=== PATIENT | female | born 2005 | race Caucasian/White ===

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

== ENCOUNTER 2023-01-03 05:29 | Emergency (ER) | payer OTHER ==
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
[2023-01-03 06:06] LABS: Urine Blood Negative (Negative); Urine Glucose Negative (Negative); Urine Protein Negative (Negative); Urine Specific Gravity 1.015 (1.005-1.030); Urine pH 6.5 (5.0-7.0)
[2023-01-03 06:24] LABS: Absolute Lymphocytes (CBC) 2.7 K/uL (0.7-4.9); Lymphocytes % 27.8 % (15.3-44.8); MPV 8.5 fL (7.6-11.3); RBC Red Blood Cell Count 4.64 M/uL (3.86-4.86)
[2023-01-03 06:26] LABS: Potassium 3.6 mmol/L (3.5-5.1)
[2023-01-03 06:56] VITALS: TEMP 97.9; O2SAT 100
[2023-01-03 06:57] VITALS: BP 122/72
[2023-01-03 14:06] LABS: Urine Specific Gravity/Preg 1.015 (1.005-1.030)
--- NOTE | 2023-01-07 13:18 | EKG ---
Test Date: 2023-01-03 Test Time: 06:35:19 Machine Buffer: JENNIFER MEASUREMENT RESULTS: Intervals: Rate: 71 UT: 128 QRSD: 80 QT: 416 QTc: 452 Bradley: P: 73 UT: 128 QRS: 89 T: 60 INTERPRETIVE STATEMENTS: Normal sinus rhythm with sinus arrhythmia Normal ECG Compared to ECG 05/14/2022 03:43:51 Sinus bradycardia no longer present Electronically Signed On 01-07-23 13:09:51 CDT by Delgado Khan
--- NOTE | 2023-01-18 15:21 | ER ---
Nurse's Notes [facility] Name: Yadi Castano Age: 17 yrs Sex: Female : 2005 Arrival Date: 01/03/2023 Time: 05:30 Bed 3 Private MD: Diagnosis: Other seizures Presentation: 01/03 05:30 Chief complaint: EMS states: called out for seizure like activity. 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 Coronavirus screen: At this time, the client does not indicate any symptoms associated with coronavirus-19. Ebola Screen: No symptoms or risks identified at this time. Initial Sepsis Screen: Does the patient meet any 2 criteria? No. Patient's initial sepsis screen is negative. Does the patient have a suspected source of infection? No. Patient's initial sepsis screen is negative. Risk Assessment: Do you want to hurt yourself or someone else? Patient reports no desire to harm self or others. Onset of symptoms was January 03, 2023 at 03:15. 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 - Social history:: Smoking status: Reported history of juuling and/or vaping. Screenin:34 [facility] ED Fall Risk Assessment (Adult) Score/Fall Risk Level 0 - 2 = Low Risk. Abuse as6 screen: Denies threats or abuse. Denies injuries from another. Nutritional screening: No deficits noted. Tuberculosis screening: No symptoms or risk factors identified. Assessment: 05:36 General: Appears in no apparent distress. Behavior is calm, cooperative. Pain: as6 Complains of pain in generalized Quality of pain is described as aching. Neuro: Level of Consciousness is awake, alert, obeys commands, Oriented to person, place, time, situation. Respiratory: Respiratory effort is even, unlabored. 06:41 Reassessment: Patient appears in no apparent distress at this time. No changes from lg3 previously documented assessment. Patient and/or family updated on plan of care and expected duration. Pain level reassessed. Patient is alert, oriented x 3, equal unlabored respirations, skin warm/dry/pink. Patient denies pain at this time. Patient states feeling better. Patient states symptoms have improved. Vital Signs: 05:30 BP 138 / 62; Pulse 78; Resp 16 S; Temp 97.9(TE); Pulse Ox 100% on R/A; Weight 58.97 kg as6 (R); Height 5 ft. 0 in. (R); Pain 6/10; 06:42 BP 122 / 72; Pulse 71; Resp 17; Pulse Ox 100% on R/A; lg3 05:30 Body Mass Index 25.39 (58.97 kg, 152.4 cm) as6 05:30 Pain Scale: Adult as6 ED Course: 05:30 Patient arrived in ED. as6 05:30 Arm band placed on. as6 05:32 Macario Jimenez MD is Attending Physician. bs3 05:34 Triage completed. as6 05:35 Placed in gown. Bed in low position. Call light in reach. Side rails up X2. as6 05:36 Daquan Murdock, RN is Primary Nurse. as6 06:10 BMP Sent. bc6 06:10 CBC with Diff Sent. bc6 06:10 Inserted saline lock: 20 gauge in right antecubital area, using aseptic technique. bc6 06:45 No provider procedures requiring assistance completed. as6 06:51 IV discontinued, intact, bleeding controlled, No redness/swelling at site. Pressure lg3 dressing applied. 06:58 Primary Nurse role handed off by Daquan Murdock RN bb Administered Medications: No medications were administered Medication: 05:35 VIS not applicable for this client. as6 Outcome: 06:45 Condition: stable as6 06:45 Discharge ordered by . bs3 06:51 Discharged to home ambulatory, with significant other. lg3 06:51 Discharge instructions given to patient, Instructed on discharge instructions, follow up and referral plans. Demonstrated understanding of instructions, follow-up care. 06:51 Patient left the ED. lg3 06:59 Patient left the ED. bb Signatures: Ada Wilkes RN RN bb Yadi Clemons RN RN lg3 Daquan Murdock, RN RN as6 Macario Jimenez MD MD bs3 Amaya Hurd bc6 Corrections: (The following items were deleted from the chart) 05:31 05:30 PMHx: UTI; as6 as6
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
== END 2023-01-03 06:59 | disposition home or self-care (01) ==
LOC: ER 05:29
DX: R56.9 Unspecified convulsions (principal)
CPT/HCPCS: 36415; 80048; 81003; 81025; 85025; 93005; 99283

== ENCOUNTER 2023-06-02 02:08 | Emergency (ER) | payer OTHER ==
--- OUTSIDE RECORDS SUMMARY | 2023-06-02 02:11 | XMS REPORT | Continuity of Care Document ---
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 qi/gfr_calculat orPed CALC BUN/CREAT (test 15 RATIO - code = 2235) SODIUM (test code = 141 MEQ/L 208-291 4429) POTASSIUM (test code 4.0 MEQ/L 3.5-5.4 = 2228) CHLORIDE (test code 106 MEQ/L 95-107 = 2215) CARBON DIOXIDE (test 20 MEQ/L 19-31 code = 2206) CALCIUM (test code = 9.1 MG/DL 8.5-10.5 2208) PROTEIN, TOTAL (test 7.1 G/DL 6.1-8.3 code = 2229) ALBUMIN (test code = 4.7 G/DL 3.5-5.2 2200) CALC GLOBULIN (test 2.4 G/DL 2.1-3.7 code = 2240) CALC A/G RATIO (test 2.0 RATIO 1.0-2.6 code = 2234) BILIRUBIN, TOTAL 0.6 MG/DL See_Comment [Automated message] (test code = 2206) The syste m which generated this result transmit jayashree reference range : <=1.2. The refe rence range was not u sed to interpret th is result as normal/abnormal . ALKALINE PHOSPHATASE 66 U/L 45-126 (test code = 2203) AST (test code = 13 U/L 9-40 2217) ALT (test code = 9 U/L 5-40 2218) TSH, THIRD [id number] 00:46:58 Test Item Value Reference Range Interpretation Comments TSH, THIRD GENERATION (test code 0.738 UIU/ML 0.400-4.100 = 2821) CBC W/AUTO DIFF WITH [id number] 05:43:17 Test Item Value Reference Range Interpretation [...] RBCS 0.00 K/UL 0.00-0.11 (test code = 42804) POCT [id number] 19:13:00 Test Item Value Reference Range Interpretation Comments POCT PREG (test code = 1605) Negative On board controls acceptable with C Yes Line (test code = 3574) POCT PREG LOT # (test code = 3575) POCT PREG TEST DATE (test code = 3576) [facility]
[2023-06-02 02:54] LABS: Specific Gravity 1.013 (1.005-1.030); Urine Bacteria <20 /HPF (<20); Urine Bilirubin NEGATIVE (Negative); Urine Blood 2+ (Negative); Urine Clarity Extremely Turbid (Clear); Urine Color Dark-Yellow (Yellow); Urine Glucose NEGATIVE (Negative); Urine Mucus Slight /HPF (None Seen); Urine Protein 1+ (Negative); Urine RBC >50 /HPF (None Seen); Urine Urobilinogen Normal (Normal); Urine WBC Clump Few /HPF (None Seen); Urine pH 6.5 (5.0-7.0)
[2023-06-02 02:57] LABS: Specific Gravity 1.013 (1.005-1.030)
--- NOTE | 2023-06-02 02:59 | ER ---
Nurse's Notes [facility] Name: Yadi Castano Age: 17 yrs Sex: Female : 2005 Arrival Date: 06/02/2023 Time: 02:08 Bed 13 Private MD: Diagnosis: UTI/ Urinary tract infection, site not specified Presentation: 06/02 02:27 Chief complaint: Patient states: burning with urination with bladder spasms pain of pf1 7,onset 1 week ago. 02:27 Coronavirus screen: Vaccine status: Patient reports being unvaccinated. Client denies pf1 travel out of the [place] in the last 14 days. At this time, the client does not indicate any symptoms associated with coronavirus-19. Ebola Screen: Patient negative for fever greater than or equal to 101.5 degrees Fahrenheit, and additional compatible Ebola Virus Disease symptoms. Initial Sepsis Screen: Does the patient meet any 2 criteria? No. Patient's initial sepsis screen is negative. Does the patient have a suspected source of infection? No. Patient's initial sepsis screen is negative. Risk Assessment: Do you want to hurt yourself or someone else? Patient reports no desire to harm self or others. 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 Last tetanus immunization: < 5 years ago Flu vaccine is not up to date. - Social history:: Smoking status: Reported history of juuling and/or vaping. Patient uses alcohol, occasionally. Patient/guardian denies using street drugs. Screenin:00 [facility] ED Fall Risk Assessment (Adult) History of falling in the last 3 months, fu including since admission No falls in past 3 months (0 pts). Abuse screen: Denies threats or abuse. Nutritional screening: No deficits noted. Tuberculosis screening: No symptoms or risk factors identified. Assessment: 02:20 General: Appears in no apparent distress. comfortable, well groomed, Behavior is calm, fu cooperative, appropriate for age. Pain: Denies pain. Neuro: Level of Consciousness is awake, alert, obeys commands, Oriented to person, place, time, situation. Respiratory: Respiratory effort is even, unlabored, Respiratory pattern is regular. : Reports burning with urination. Vital Signs: 02:27 BP 126 / 87; Pulse 69; Resp 18; Temp 98; Pulse Ox 97% ; Weight 63.5 kg; Height 5 ft. 1 pf1 in. ; Pain 710; 02:27 Body Mass Index 26.45 (63.50 kg, 154.94 cm) pf1 02:27 Pain Scale: Adult pf1 ED Course: 02:13 Patient arrived in ED. mr 02:27 Cely Fu PA-C is PHCP. sb4 02:27 Eddie Johnson MD is Attending Physician. sb4 02:42 Test, Urine Sent. fu 02:42 UAM Sent. fu 02:52 Triage completed. pf1 03:00 Patient has correct armband on for positive identification. Pulse ox on. NIBP on. fu 03:20 No provider procedures requiring assistance completed. Patient did not have IV access fu during this emergency room visit. Administered Medications: 02:45 CANCELLED (Physician Discretion): LevOfloxacin PO 500 mg PO once sb4 03:06 Drug: LevOfloxacin PO 500 mg Route: PO; fu 03:29 Follow up: Response: Medication administered at discharge. fu Medication: 03:00 VIS not applicable for this client. fu Outcome: 02:59 Discharge ordered by . sb4 03:20 Discharged to home ambulatory. fu 03:20 Condition: stable 03:20 Discharge instructions given to patient, Instructed on discharge instructions, follow up and referral plans. Demonstrated understanding of instructions, follow-up care, Prescriptions given X 1. 03:22 Patient left the ED. fu Signatures: Arpita Jordan mr LazarusyaniChris, RN RN Cely Mckeon PA-C PA-C sb4 Lavinia Shi RN RN pf1
--- NOTE | 2023-06-02 02:59 | EDPHYS ---
Physician Documentation [facility] Name: Yadi Castano Age: 17 yrs Sex: Female : 2005 Arrival Date: 06/02/2023 Time: 02:08 Bed 13 Private MD: ED Physician Eddie Johnson HPI: 06/02 02:44 This 17 yrs old Female presents to ER via Unassigned with complaints of Urinary Problem.sb4 02:44 Onset: The symptoms/episode began/occurred gradually. Associated signs and symptoms: sb4 Pertinent positives: abdominal pain, dysuria, Nausea, back pain, Pertinent negatives: congestion, constipation, cough, diarrhea, vomiting. The patient has experienced similar episodes in the past, multiple times. experiencing dysuria. has history of UTIs. states she is having lower abdominal cramps, back pain, and nausea associated. is also concerned for . 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 Last tetanus immunization: < 5 years ago Flu vaccine is not up to date. - Social history:: Smoking status: Reported history of juuling and/or vaping. Patient uses alcohol, occasionally. Patient/guardian denies using street drugs. ROS: 02:46 Constitutional: Negative for fever, chills, and weight loss, Eyes: Negative for injury, sb4 pain, redness, and discharge, ENT: Negative for injury, pain, and discharge, Cardiovascular: Negative for chest pain, palpitations, and edema, Abdomen/GI: Negative for abdominal pain, nausea, vomiting, diarrhea, and constipation, MS/Extremity: Negative for injury and deformity, Skin: Negative for injury, rash, and discoloration, Neuro: Negative for headache, weakness, numbness, tingling, and seizure. 02:46 Cardiovascular: Positive for 02:46 Abdomen/GI: Positive for nausea, abdominal cramps, Negative for vomiting, diarrhea. 02:46 Back: Positive for flank pain, bilaterally. 02:46 : Positive for urinary symptoms, burning with urination. 02:46 All other systems are negative. Exam: 02:46 Constitutional: This is a well developed, well nourished patient who is awake, alert, sb4 and in no acute distress. Head/Face: Normocephalic, atraumatic. ENT: Mucous membranes moist. Cardiovascular: Regular rate and rhythm with a normal S1 and S2. Respiratory: Lungs have equal breath sounds bilaterally, clear to auscultation and percussion. No rales, rhonchi or wheezes noted. No increased work of breathing, no retractions or nasal flaring. Abdomen/GI: Soft, non-tender, no distension. Skin: Warm, dry with normal turgor. Normal color with no rashes, no lesions, and no evidence of cellulitis. MS/ Extremity: Pulses equal, no cyanosis. Neurovascular intact. Full, normal range of motion. Neuro: Awake and alert, GCS 15, oriented to person, place, time, and situation. Cranial nerves II-XII grossly intact. Motor strength 5/5 in all extremities. Sensory grossly intact. Cerebellar exam normal. Normal gait. Vital Signs: 02:27 BP 126 / 87; Pulse 69; Resp 18; Temp 98; Pulse Ox 97% ; Weight 63.5 kg; Height 5 ft. 1 pf1 in. ; Pain 7/10; 02:27 Body Mass Index 26.45 (63.50 kg, 154.94 cm) pf1 02:27 Pain Scale: Adult pf1 MDM: 02:27 Patient medically screened. sb4 02:46 Differential diagnosis: UTI, pyelonephritis, , STI. sb4 02:58 Data reviewed: vital signs, nurses notes, lab test result(s), and as a result, I will sb4 discharge patient. Counseling: I had a detailed discussion with the patient and/or guardian regarding: the historical points, exam findings, and any diagnostic results supporting the discharge/admit diagnosis, lab results, to return to the emergency department if symptoms worsen or persist or if there are any questions or concerns that arise at home. 02:58 External Records Reviewed: Outpatient labs: reviewed prior urine cultures, previous sb4 with group b strep sensitivity to pencillin, vancomycin, and levofloxacin. 06/02 02:27 Order name: SYED; Complete Time: :58 sb4 08/06 02:27 Order name: Test, Urine; Complete Time: 02:58 sb4 06/02 03:00 Order name: Urine Culture EDMS Administered Medications: 02:45 CANCELLED (Physician Discretion): LevOfloxacin PO 500 mg PO once sb4 03:06 Drug: LevOfloxacin PO 500 mg Route: PO; fu 03:29 Follow up: Response: Medication administered at discharge. fu Disposition: 03:21 Co-signature as Attending Physician, Eddie Johnson MD I agree with the assessment sp4 and plan of care. I reviewed the patient's care provided by the Advanced Practice Provider and agree with the diagnosis and treatment plan. Disposition Summary: 06/02/23 02:59 Discharge Ordered Location: Home sb4 Problem: new sb4 Symptoms: are unchanged sb4 Condition: Stable sb4 Diagnosis - UTI/ Urinary tract infection, site not specified sb4 Followup: sb4 - With: Private Physician - When: As needed - Reason: Recheck today's complaints, Continuance of care, Re-evaluation by your physician Discharge Instructions: - Discharge Summary Sheet sb4 - Urinary Tract Infection, Adult, [id number] sb4 Forms: - Medication Reconciliation Form sb4 - Thank You Letter sb4 - Antibiotic Education sb4 - Prescription Opioid Use sb4 - Patient Portal Instructions sb4 Prescriptions: - levofloxacin 500 mg Oral Tablet - take 1 tablet by ORAL route once daily for 7 days; 7 tablet; Refills: 0, sb4 Product Selection Permitted Signatures: Dispatcher [employer] EDNM Chris Sifuentes RN RN fu Brown, Sophia, PA-C PANeemaC sb4 Lavinia Shi RN RN 1 Eddie Johnson MD MD sp4 Corrections: (The following items were deleted from the chart) 02:45 02:44 LevOfloxacin PO 500 mg PO once ordered. sb4 sb4
[2023-06-02] MEDS ORDERED: levoFLOXacin 250 MG TAB ONE (03:12)
[2023-06-02 03:30] VITALS: BP 126/87; TEMP 98; O2SAT 97
== END 2023-06-02 03:22 | disposition home or self-care (01) ==
LOC: ER 02:08
DX: N39.0 Urinary tract infection, site not specified (principal)
CPT/HCPCS: 81001; 81025; 87077; 87086; 87088; 87186; 99284

== ENCOUNTER → 2023-11-18 | Emergency (ER) | payer OTHER ==
[~2023-11-18] MED LIST: CEFTRIAXONE 1000 MG/VIAL ONE
--- OUTSIDE RECORDS SUMMARY | 2023-11-18 13:30 | XMS REPORT | Continuity of Care Document ---
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 RATIO (test code = 2233) 1.7 RATIO 1.0-2.6 BILIRUBIN, TOTAL (test code = 2206) 0.8 MG/DL <=1.2 ALKALINE PHOSPHATASE (test code = 2203) 83 U/L 41-120 AST (test code = 2217) 14 U/L 9-40 ALT (test code = 2218) 7 U/L 5-40 LIPID [id number] 05:25:25* Test Item Value Reference Range Interpretation Comme nts CHOLESTEROL (test code = 2209) 124 MG/DL <200 TRIGLYCERIDES (test code = 2231) 75 MG/DL <150 HDL CHOLESTEROL (test code = 2219) 43 MG/DL >39 CALC LDL CHOL (test code = 2236) 65 MG/DL <100 NOTE: CALCULATED LDL IS BASED ON VASILE-RICHARDS METHOD WHICHINCLUDES ADJUSTABLE TRIGLYCERIDE:VLDL CHOLESTEROL RATIO.THIS FACTOR VARIES BY MEASURED TRIGLYCERIDE AND NON-HDLCHOLESTEROL CONCENTRATIONS WITH INCREASED CALCULATED LDL SEENIN HIGHER TRIGLYCERIDE OR LOWER NON-HDL SPECIMENS. FOR MOREINFORMATION, SEE CLIENT ANNOUNCEMENT AT [email or web address] RISK RATIO LDL/HDL (test code = 2237) 1.51 RATIO <3.22 HEMOGLOBIN [id number] 02:58:16* Test Item Value Reference Range Interpretation Comme nts HEMOGLOBIN A1c (test code = 31013) 4.7 % 4.2-5.6 UNLESS OTHERWISE INDICATED, ALL TESTING PERFORMED AT [facility] [address] [place] [address] VIBRATING SCREEN OPERATOR: JENNIFER BASURTO M.D. CLIA NUMBER [id number] [place]. [id number] CBC W/AUTO DIFF WITH [id number] 01:43:18* Test Item Value Reference Range Interpretation Comme nts WBC (test code = 1001) 5.6 K/UL 3.5-11.0 RBC (test code = 1002) 4.92 M/UL 3.80-5.40 HEMOGLOBIN (test code = 1003) 14.3 G/DL 11.5-15.5 HEMATOCRIT (test code = 1004) 42.7 % 34.0-45.0 MCV (test code = 1005) 86.8 fL 80.0-99.0 MCH (test code = 1006) 29.1 PG 25.0-33.0 MCHC (test code = 1007) 33.5 G/DL 31.0-36.0 RDW (test code = 1038) 12.2 % 11.5-15.0 NEUTROPHILS (test code = 1008) 63.8 % LYMPHOCYTES (test code = 1010) 25.4 % MONOCYTES (test code = 1011) 8.1 % EOSINOPHILS (test code = 1012) 2.0 % BASOPHILS (test code = 1013) 0.7 % IMMATURE GRANULOCYTES (test code = 1036) 0.0 % NUCLEATED RBCS (test code = 1065) 0.0 /100 WBC'S See_Comment [Automated messa ge] The system which generated this result transmitted reference range: 0.0. The reference range was not used to interpret this result as normal/abnormal. PLATELET COUNT (test code = 1015) 273 K/UL 130-400 ABSOLUTE NEUTROPHILS (test code = 1066) 3.57 K/UL 1.50-7.50 ABSOLUTE LYMPHOCYTES (test code = 1067) 1.42 K/UL 1.00-4.00 ABSOLUTE MONOCYTES (test code = 1068) 0.45 K/UL 0.20-1.00 ABSOLUTE EOSINOPHILS (test code = 1040) 0.11 K/UL 0.00-0.50 ABSOLUTE BASOPHILS (test code = 1069) 0.04 K/UL 0.00-0.20 ABS IMMATURE GRANULOCYTES (test code = 1020) 0.00 K/UL 0.00-0.10 ABS NUCLEATED RBCS (test code = 08296) 0.00 K/UL 0.00-0.11 H. PYLORI (BREATH)2022-07-17 16:16:40* Test Item Value Reference Range Interpretation Comme nts H. PYLORI (BREATH) (test code = 77713) NEGATIVE NEGATIVE UNLESS OTHER ALVAREZ INDICATED, [facility] [address] [place] [address] VIBRATING SCREEN OPERATOR: RENZO PIERRE M.D. CLIA NUMBER [id number] [place]. [id number] COMPREHENSIVE METABOLIC [id number] 02:36:06* Test Item Value Reference Range Interpretation Comme nts GLUCOSE (test code = 2217) 79 MG/DL 70-99 BUN (test code = 2208) 10 MG/DL 6-20 CREATININE (test code = 2214) 0.68 MG/DL 0.50-1.10 eGFR (2020 CKD-EPI) (test code = 84659) NO CALC ML/MIN/1.73 >60 NOTE: 2020 CKD-EPI is not validated for pediatric populations. For patients less than 19 years old, consider F pediatric eGFR calculator https://www.kidney.o rg/professionals/kdo qi/gfr_calculatorPed CALC BUN/CREAT (test code = 2235) 15 RATIO 6-28 SODIUM (test code = 2231) 141 MEQ/L 133-146 POTASSIUM (test code = 2228) 4.0 MEQ/L 3.5-5.4 CHLORIDE (test code = 2215) 106 MEQ/L 95-107 CARBON DIOXIDE (test code = 2206) 20 MEQ/L 19-31 CALCIUM (test code = 2209) 9.1 MG/DL 8.5-10.5 PROTEIN, TOTAL (test code = 222) 7.1 G/DL 6.1-8.3 ALBUMIN (test code = 2201) 4.7 G/DL 3.5-5.2 CALC GLOBULIN (test code = 2240) 2.4 G/DL 2.1-3.7 CALC A/G RATIO (test code = 2234) 2.0 RATIO 1.0-2.6 BILIRUBIN, TOTAL (test code = 2207) 0.6 MG/DL See_Comment [Automated me ssage] The system which generated this result transmitted reference range: <=1.2. The reference range was not used to interpret this result as normal/abnormal. ALKALINE PHOSPHATASE (test code = 2204) 66 U/L 45-126 AST (test code = 2218) 13 U/L 9-40 ALT (test code = 2219) 9 U/L 5-40 TSH, THIRD [id number] 00:46:58* Test Item Value Reference Range Interpretation Comme nts TSH, THIRD GENERATION (test code = 2821) 0.738 UIU/ML 0.400-4.100 CBC W/AUTO DIFF WITH [id number] 05:43:17* Test Item Value Reference Range Interpretation Comme nts WBC (test code = 1001) 4.7 K/UL 3.5-11.0 RBC (test code = 1002) 4.41 M/UL 3.80-5.40 HEMOGLOBIN (test code = 1003) 12.7 G/DL 11.5-15.5 HEMATOCRIT (test code = 1004) 37.5 % 34.0-45.0 MCV (test code = 1005) 85.0 fL 80.0-99.0 MCH (test code = 1006) 28.8 PG 25.0-33.0 MCHC (test code = 1007) 33.9 G/DL 31.0-36.0 RDW (test code = 1038) 11.4 % 11.5-15.0 L NEUTROPHILS (test code = 1008) 53.4 % LYMPHOCYTES (test code = 1010) 34.3 % MONOCYTES (test code = 1011) 10.0 % EOSINOPHILS (test code = 1012) 1.7 % BASOPHILS (test code = 1013) 0.4 % IMMATURE GRANULOCYTES (test code = 1036) 0.2 % NUCLEATED RBCS (test code = 1065) 0.0 /100 WBC'S See_Comment [Automated messa ge] The system which generated this result transmitted reference range: 0.0. The reference range was not used to interpret this result as normal/abnormal. PLATELET COUNT (test code = 1015) 215 K/UL 130-400 ABSOLUTE NEUTROPHILS (test code = 1066) 2.50 K/UL 1.50-7.50 ABSOLUTE LYMPHOCYTES (test code = 1067) 1.61 K/UL 1.00-4.00 ABSOLUTE MONOCYTES (test code = 1068) 0.47 K/UL 0.20-1.00 ABSOLUTE EOSINOPHILS (test code = 1040) 0.08 K/UL 0.00-0.50 ABSOLUTE BASOPHILS (test code = 1069) 0.02 K/UL 0.00-0.20 ABS IMMATURE GRANULOCYTES (test code = 1020) 0.01 K/UL 0.00-0.10 ABS NUCLEATED RBCS (test code = 02702) 0.00 K/UL 0.00-0.11 POCT [id number] 19:13:00* Test Item Value Reference Range Interpretation Comme nts POCT PREG (test code = 1605) Negative On board controls acceptable with C Line (test code = 3574) Yes POCT PREG LOT # (test code = 3575) POCT PREG TEST DATE ( test code = 3576) [facility]
[2023-11-18 16:16] LABS: Absolute Lymphocytes (CBC) 1.3 K/uL (0.7-4.9); Hematocrit 42.9 % (36.0-45.0); MCV 85.1 fL (80-100); MPV 9.1 fL (7.6-11.3); Platelets 222 thou/uL (152-406); RBC Red Blood Cell Count 5.04 M/uL (3.86-4.86)
[2023-11-18 16:27] LABS: Albumin 4.1 g/dL (3.4-5.0); Bilirubin Total 0.7 mg/dL (0.2-1.0); Potassium 3.9 mEq/L (3.5-5.1); Protein, Total 7.9 g/dL (6.4-8.2); Specific Gravity > 1.030 (1.005-1.030)
[2023-11-18 16:32] LABS: Specific Gravity > 1.030 (1.005-1.030); Urine Bacteria <20 /HPF (<20); Urine Bilirubin NEGATIVE (Negative); Urine Blood 3+ (OVER) (Negative); Urine Clarity Extremely Turbid (Clear); Urine Color Yellow (Yellow); Urine Crystals Unidentified Few /HPF (None Seen); Urine Glucose NEGATIVE (Negative); Urine Mucus 4+ /HPF (None Seen); Urine Protein 2+ (Negative); Urine RBC >50 /HPF (None Seen); Urine Urobilinogen Normal (Normal); Urine WBC Clump Occasional /HPF (None Seen)
--- NOTE | 2023-11-18 17:37 | RAD REPORT ---
EXAM DESCRIPTION: CT - Abdomen Pelvis W Contrast - 11/18/2023 4:52 pm CLINICAL HISTORY: pyelo COMPARISON: No comparisons TECHNIQUE: Thin cut axial CT imaging of the abdomen and pelvis was performed following intravenous a dministration of 100 mL Isovue 300. Multiplanar reformats were generated and reviewed. All CT scans are performed using dose optimization technique as appropriate and may include automated exposure control or mA/KV adjustment according to patient size. FINDINGS: No suspicious findings in the lung bases. The liver, spleen, adrenal glands, and pancreas show no suspicious findings. Gallbladder and biliary tree are also without suspicious finding. Symmetric renal function is seen with no hydronephrosis or suspicious renal mass. No dilated bowel loops or bowel wall thickening. Appendix is normal. No free air, free fluid or infla mmatory stranding. No hernia, mass or bulky lymphadenopathy. The urinary bladder is without significa nt finding. No suspicious bony findings. IMPRESSION: No acute intra-abdominal process.
--- NOTE | 2023-11-18 17:54 | EDPHYS ---
Physician Documentation [facility] Name: Yadi Castano Age: 18 yrs Sex: Female : 2005 Arrival Date: 11/18/2023 Time: 13:26 Bed 18 Private MD: ED Physician Daniel Us HPI: 11/18 15:30 This 18 yrs old Female presents to ER via Ambulatory with complaints of Urinary Problem.sb4 15:31 The patient presents with flank pain, urinary symptoms. sb4 15:53 Onset: The symptoms/episode began/occurred 4 day(s) ago. Associated signs and symptoms: sb4 Pertinent positives: dysuria, hematuria, urinary frequency. The patient has experienced similar episodes in the past, a few times. burning with urination, lower back pain, hematuria today. no known fevers. family history of PKD and stones. no personal history. Historical: - Allergies: 13:41 No Known Allergies; ld1 - PMHx: 13:41 Anxiety; depressive disorder; PVC; scoliosis; ld1 - Immunization history:: Adult Immunizations up to date. - Social history:: Smoking status: Patient denies any tobacco usage or history of. Patient/guardian denies using alcohol. ROS: 15:53 Positive for urinary symptoms, hematuria, burning with urination, sb4 15:53 Constitutional: Negative for fever, chills, and weight loss, 15:53 Back: Positive for flank pain, bilaterally, 15:53 All other systems are negative, Exam: 15:53 Constitutional: This is a well developed, well nourished patient who is awake, alert, sb4 and in no acute distress. 15:53 Head/Face: Normocephalic, atraumatic. Eyes: Extra-ocular motions intact. Periorbital areas with no swelling, redness, or edema. ENT: Mucous membranes moist. Cardiovascular: Regular rate and rhythm with a normal S1 and S2. Respiratory: Lungs have equal breath sounds bilaterally, clear to auscultation and percussion. No rales, rhonchi or wheezes noted. No increased work of breathing, no retractions or nasal flaring. Abdomen/GI: Soft, non-tender, no distension. Skin: Warm, dry with normal turgor. Normal color with no rashes, no lesions, and no evidence of cellulitis. MS/ Extremity: Pulses equal, no cyanosis. Neurovascular intact. Full, normal range of motion. Neuro: Awake and alert, GCS 15, oriented to person, place, time, and situation. Motor strength 5/5 in all extremities. Sensory grossly intact. 15:53 : CVA tenderness, noted bilaterally, Vital Signs: 13:40 BP 127 / 75; Pulse 71; Resp 18; Temp 97.9(TE); Pulse Ox 99% on R/A; Weight 63.5 kg; ld1 Height 5 ft. 1 in. ; Pain 7/10; 18:45 BP 122 / 73; Pulse 69; Resp 18; Temp 97.8(O); Pulse Ox 99% on R/A; rs5 13:40 Body Mass Index 26.45 (63.50 kg, 154.94 cm) ld1 13:40 Pain Scale: Adult ld1 MDM: 13:44 Patient medically screened. sb4 15:31 Differential diagnosis: juli infection, kidney stone, urinary tract infection, sb4 vaginosis, pyelonephritis. 17:53 Data reviewed: vital signs, nurses notes, lab test result(s), radiologic studies, and sb4 as a result, I will discharge patient. Counseling: I had a detailed discussion with the patient and/or guardian regarding the historical points, exam findings, and any diagnostic results supporting the discharge/admit diagnosis, lab results, radiology results, to return to the emergency department if symptoms worsen or persist or if there are any questions or concerns that arise at home. 11/18 13:42 Order name: CBC with Diff; Complete Time: 16:20 11/18 13:42 Order name: CMP; Complete Time: 16:29 ld11/18 13:42 Order name: Lipase; Complete Time: 16:29 ld11/18 13:42 Order name: Urinalysis w/ reflexes; Complete Time: 16:33 ld1 11/18 13:44 Order name: Test, Urine; Complete Time: 16:34 sb4 11/18 16:33 Order name: UAM; Complete Time: 18:50 sb4 11/18 13:45 Order name: CT Abd/Pelvis - IV Contrast Only; Complete Time: 17:42 sb4 11/18 13:42 Order name: IV Saline Lock; Complete Time: 16:00 ld11/18 13:42 Order name: Labs collected and sent; Complete Time: 16:00 ld1 11/18 17:54 Order name: Misc. Order: need new urine sample before DC; Complete Time: 18:19 sb4 Administered Medications: 18:28 Drug: Rocephin IV 1 grams IV at calculated rate once; Given slow IV push per pharmacy rs5 instructions Route: IV; Rate: calculated rate; Site: right antecubital; 18:42 Follow up: Response: No adverse reaction rs5 Disposition Summary: 11/18/23 17:53 Discharge Ordered Notes: Location: Home sb4 Problem: new sb4 Symptoms: are unchanged sb4 Condition: Stable sb4 Diagnosis - UTI/ Urinary tract infection, site not specified sb4 Followup: sb4 - With: Emergency Department - When: As needed - Reason: Trouble breathing, Worsening of condition Discharge Instructions: - Discharge Summary Sheet sb4 - Urinary Tract Infection, Adult, Kobk-uo-Ilzn sb4 Forms: - Medication Reconciliation Form sb4 - Thank You Letter sb4 - Antibiotic Education sb4 - Prescription Opioid Use sb4 - Patient Portal Instructions sb4 - Leadership Thank You Letter sb4 Prescriptions: - Bactrim DS 800-160 mg Oral Tablet - take 1 tablet ORAL route every 12 hours for 10 days; 20 tablet; Refills: 0, sb4 Product Selection Permitted Addendum: 11/19/2023 19:13 I was immediately available for consultation during this patient's visit. I did not e c2 personally see the patient or discuss the patient with the MICHELLE. . Signatures: Dispatcher [employer] Page Ambriz RN RN ld1 Cely Fu PA-C PA-C sb4 Tayo Britton RN RN rs5 Daniel Us MD MD ec2
--- NOTE | 2023-11-18 17:54 | ER ---
Nurse's Notes [facility] Name: Yadi Castano Age: 18 yrs Sex: Female : 2005 Arrival Date: 11/18/2023 Time: 13:26 Bed 18 Private MD: Diagnosis: UTI/ Urinary tract infection, site not specified Presentation: 11/18 13:40 Chief complaint: Patient states: Burning with urination, flank pain, frequent urination ld1 X 4 days. Pt reports blood in urine today. Coronavirus screen: At this time, the client does not indicate any symptoms associated with coronavirus-19. Ebola Screen: No symptoms or risks identified at this time. Initial Sepsis Screen: Does the patient meet any 2 criteria? No. Patient's initial sepsis screen is negative. Does the patient have a suspected source of infection? No. Patient's initial sepsis screen is negative. Risk Assessment: Do you want to hurt yourself or someone else? Patient reports no desire to harm self or others. Onset of symptoms was November 18, 2023. 13:40 Method Of Arrival: Ambulatory ld1 13:40 Method Of Arrival: Ambulatory ld1 13:40 Acuity: [place] 3 ld1 Triage Assessment: 13:41 General: Appears in no apparent distress. comfortable, Behavior is calm, cooperative, ld1 appropriate for age. Pain: Complains of pain in low back area Pain does not radiate. Pain currently is 7 out of 10 on a pain scale. Quality of pain is described as throbbing. EENT: No signs and/or symptoms were reported regarding the EENT system. Neuro: Level of Consciousness is awake, alert, obeys commands, Oriented to person, place, time, situation. Cardiovascular: Capillary refill < 3 seconds Patient's skin is warm and dry. Respiratory: Airway is patent Respiratory effort is even, unlabored. GI: Abdomen is flat, non-distended. : Reports burning with urination, urgency, urinary frequency. Derm: No signs and/or symptoms reported regarding the dermatologic system. Historical: - Allergies: 13:41 No Known Allergies; ld1 - PMHx: 13:41 Anxiety; depressive disorder; PVC; scoliosis; ld1 - Immunization history:: Adult Immunizations up to date. - Social history:: Smoking status: Patient denies any tobacco usage or history of. Patient/guardian denies using alcohol. Screenin:04 [facility] ED Fall Risk Assessment (Adult) Score/Fall Risk Level 0 - 2 = Low Risk. Abuse iw screen: Denies threats or abuse. Denies injuries from another. Nutritional screening: No deficits noted. Tuberculosis screening: No symptoms or risk factors identified. Assessment: 17:55 Reassessment: pt arrived in room . rs5 17:55 Pain: Complains of pain in lower back Pain does not radiate. Pain currently is 4 out of rs5 10 on a pain scale. Quality of pain is described as aching, Pain began 2-3 days ago. Is continuous. Respiratory: Airway is patent Respiratory effort is even, unlabored, Respiratory pattern is regular, symmetrical, Breath sounds are clear bilaterally. GI: Abdomen is round non-distended, Bowel sounds present X 4 quads. Abd is soft and non tender X 4 quads. : Reports burning with urination, urinary frequency. EENT: No signs and/or symptoms were reported regarding the EENT system. Derm: Skin is intact, Skin is dry, Skin is normal, Skin temperature is warm. Musculoskeletal: Range of motion: intact in all extremities. 18:00 General: Appears in no apparent distress. comfortable, Behavior is calm, cooperative. rs5 18:00 Neuro: Level of Consciousness is awake, alert, obeys commands, Oriented to person, rs5 place, time, situation. Cardiovascular: Heart tones S1 S2 present Patient's skin is warm and dry. Rhythm is regular. Vital Signs: 13:40 BP 127 / 75; Pulse 71; Resp 18; Temp 97.9(TE); Pulse Ox 99% on R/A; Weight 63.5 kg; ld1 Height 5 ft. 1 in. ; Pain 7/10; 18:45 BP 122 / 73; Pulse 69; Resp 18; Temp 97.8(O); Pulse Ox 99% on R/A; rs5 13:40 Body Mass Index 26.45 (63.50 kg, 154.94 cm) ld1 13:40 Pain Scale: Adult ld1 ED Course: 13:28 Patient arrived in ED. mr 13:28 Cely Fu PA-C is [facility]. sb4 13:28 Daniel Us MD is Attending Physician. sb4 13:41 Triage completed. ld1 13:41 Arm band placed on right wrist. ld1 13:45 Patient has correct armband on for positive identification. Bed in low position. Call rs5 light in reach. Side rails up X2. 16:00 Initial lab(s) drawn, by me, sent to lab. Urine collected: clean catch specimen, tea ap3 colored. Inserted saline lock: 20 gauge in right antecubital area, using aseptic technique. Blood collected. 16:01 CBC with Diff Sent. ap3 16:01 CMP Sent. ap3 16:01 Lipase Sent. ap3 16:01 Urinalysis w/ reflexes Sent. ap3 16:01 Test, Urine Sent. ap3 16:53 CT Abd/Pelvis - IV Contrast Only In Process Unspecified. EDMS 18:19 Tayo Britton, RN is Primary Nurse. rs5 19:04 No provider procedures requiring assistance completed. IV discontinued, intact, iw bleeding controlled, No redness/swelling at site. Pressure dressing applied. Administered Medications: 18:28 Drug: Rocephin IV 1 grams IV at calculated rate once; Given slow IV push per pharmacy rs5 instructions Route: IV; Rate: calculated rate; Site: right antecubital; 18:42 Follow up: Response: No adverse reaction rs5 Medication: 18:35 VIS not applicable for this client. rs5 Outcome: 17:53 Discharge ordered by . sb4 19:04 Discharged to home ambulatory, iw 19:04 Condition: good 19:04 Discharge instructions given to patient, Instructed on discharge instructions, follow up and referral plans. medication usage, Demonstrated understanding of instructions, follow-up care, medications, Prescriptions given X 1, 19:04 Patient left the ED. iw Signatures: Dispatcher [employer] EDRI Arpita Jordan, Reg Reg mr Kaelyn Villalpando, RN RN iw Alexandria Verduzco RN RN ap3 Page Bergman RN RN ld1 Cely Fu PANeemaC PA-C sb4 Tayo Britton, RN RN rs5 Corrections: (The following items were deleted from the chart) 19:27 18:00 Pain: Denies pain. rs5 rs5
[2023-11-18 18:23] LABS: Urine Bacteria <20 /HPF (<20); Urine Bilirubin NEGATIVE (Negative); Urine Blood 3+ (OVER) (Negative); Urine Clarity Clear (Clear); Urine Color Light-Yellow (Yellow); Urine Glucose NEGATIVE (Negative); Urine Mucus Slight /HPF (None Seen); Urine Protein TRACE (Negative); Urine RBC <5 /HPF (None Seen); Urine Urobilinogen Normal (Normal); Urine pH 6.5 (5.0-7.0)
[2023-11-18 18:48] LABS: Specific Gravity > 1.030 (1.005-1.030)
[2023-11-18 22:26] VITALS: BP 127/75; TEMP 97.9; O2SAT 99
== END ==
LOC: ER 13:26
DX: N39.0 Urinary tract infection, site not specified (principal)
CPT/HCPCS: 85025; 81001 ×2; 36415; 81025; 83690; 80053; 74177; 96374; 99284; Q9967; J0696